=== PATIENT | female | born 1995 | race Hispanic/Latino ===

== ENCOUNTER 2023-01-15 07:40 | Observation (INO) | payer OTHER ==
[~2023-01-15] VITALS: Ht 154.9 cm; Wt 69.9 kg
[2023-01-15] MEDS ORDERED: LACTATED RINGERS 1000ML 1,000 ML IV PRN (08:30)
[2023-01-15 08:47] VITALS: BP 118/57
[2023-01-15 09:24] LABS: APPEARANCE,URINE CLEAR (CLEAR); BILIRUBIN,URINE NEGATIVE (NEGATIVE); COLOR,URINE LIGHT-YELLOW (YELLOW); GLUCOSE, URINE (UA) NEGATIVE (NEGATIVE); KETONES,URINE NEGATIVE (NEGATIVE); LEUKOCYTE ESTERASE ,URINE NEGATIVE Leu/uL (NEGATIVE); NITRATE,URINE NEGATIVE (NEGATIVE); OCCULT BLOOD,URINE NEGATIVE (NEGATIVE); PROTEIN,URINE 10 mg/dL (NEGATIVE); UROBILINOGEN,URINE 0.2 mg/dL (0.2-1.0)
[2023-01-15 09:29] LABS: BACTERIA,URINE FEW /HPF (None Seen); MUCUS,URINE RARE LPF (None Seen); SQUAMOUS EPITHELIAL CELL,UR FEW /HPF (0-2)
[2023-01-15 09:31] LABS: AMPHET/METH SCREEN,URINE NEGATIVE (NEGATIVE); BARBITURATE SCREEN, URINE NEGATIVE (NEGATIVE); BENZODIAZEPINES SCREEN,URINE NEGATIVE (NEGATIVE); CANNABINOID SCREEN,URINE NEGATIVE (NEGATIVE); COCAINE SCREEN,URINE NEGATIVE (NEGATIVE); OPIATE SCREEN,URINE NEGATIVE (NEGATIVE); PHENCYCLIDINE SCREEN,URINE NEGATIVE (NEGATIVE)
== END 2023-01-15 09:35 | disposition home or self-care (01) ==
LOC: EDH 07:40 → LDH 07:41
PROVIDERS: ADMIT Obstetrics & Gynecology; ATTEND Obstetrics & Gynecology
DX: O26.892 Other specified pregnancy related conditions, second trimester (principal); Z20.822 Contact with and (suspected) exposure to COVID-19; R10.9 Unspecified abdominal pain; R19.7 Diarrhea, unspecified; Z3A.22 22 weeks gestation of pregnancy
CPT/HCPCS: 96360; 87635; 80305; 87804 ×2; 81001; G0379; G0378

== ENCOUNTER 2023-05-19 05:48 | Inpatient (IN) | payer OTHER ==
[~2023-05-19] VITALS: Ht 157.5 cm; Wt 79.8 kg
[2023-05-19] MEDS ORDERED: OXYTOCIN-LR 30 UNITS/500ML 500 ML IV SCH (06:00)
[2023-05-19] MEDS ORDERED: OXYTOCIN-LR 20 UNITS/1000 ML 1,000 ML IV SCH (06:00)
[2023-05-19] MEDS ORDERED: LACTATED RINGERS 1000ML 1,000 ML IV PRN (06:00)
[2023-05-19 06:57] LABS: HEMATOCRIT 35.7 % (36-48); MEAN CORPUSCULAR HEMOGLOBIN 27.7 pg (27.0-33.0); MEAN CORPUSCULAR HGB CONC 32.8 g/dL (32.0-36.0); MEAN CORPUSCULAR VOLUME 84.4 fL (79-99); RED BLOOD CELL COUNT(AUTO) 4.23 MIL/uL (4.00-5.50); RED CELL DISTRIBUTION WIDTH 14.1 % (11.0-15.5); WHITE BLOOD COUNT (AUTO) 13.3 K/uL (4.8-10.8)
[2023-05-19 07:09] LABS: APPEARANCE,URINE CLOUDY (CLEAR); BILIRUBIN,URINE NEGATIVE (NEGATIVE); COLOR,URINE YELLOW (YELLOW); GLUCOSE, URINE (UA) NEGATIVE (NEGATIVE); KETONES,URINE NEGATIVE (NEGATIVE); LEUKOCYTE ESTERASE ,URINE 75 Leu/uL (NEGATIVE); NITRATE,URINE NEGATIVE (NEGATIVE); OCCULT BLOOD,URINE MODERATE (NEGATIVE); PROTEIN,URINE 20 mg/dL (NEGATIVE); UROBILINOGEN,URINE 0.2 mg/dL (0.2-1.0)
[2023-05-19 07:36] VITALS: BP 102/55
[2023-05-19 07:42] LABS: BACTERIA,URINE FEW /HPF (None Seen); MUCUS,URINE RARE LPF (None Seen); SQUAMOUS EPITHELIAL CELL,UR FEW /HPF (0-2); TRANSITIONAL EPI CELLS,URINE RARE /HPF (None Seen)
[2023-05-19] MEDS ORDERED: PROMETHAZINE HCL 25 MG/ML 1ML AMPULE IM ONE (09:42)
[2023-05-19] MEDS ORDERED: MEPERIDINE-PF 50 MG/ML SYG ONE (09:42)
[2023-05-19] MEDS ORDERED: FENTANYL CITRATE PF 50 MCG/1 ML 2ML VIAL ONE (09:58)
[2023-05-19] MEDS ORDERED: ROPIVACAINE 0.2% 100ML VIAL 100 ML EP SCH (10:00)
[2023-05-19] MEDS ORDERED: EPHEDRINE SULFATE 50 MG/ML AMPULE IVP PRN (10:00)
[2023-05-19] MEDS ORDERED: MEPERIDINE-PF 50 MG/ML SYG IVP PRN (10:00)
[2023-05-19] MEDS ORDERED: NALOXONE HCL 0.4 MG/1 ML ML IV PRN (10:00)
[2023-05-19] MEDS ORDERED: LACTATED RINGERS 500 ML 500 ML IV PRN (10:00)
[2023-05-19 13:01] LABS: RAPID PLASMA REAGIN NONREACTIVE (NONREACTIVE)
[2023-05-19] MEDS ORDERED: CEFAZOLIN SODIUM 2 GM VIAL ONE (15:30)
[2023-05-19] MEDS ORDERED: CALDOLOR 800MG+NS 250ML 250 ML IV PRN (15:30)
[2023-05-19] MEDS ORDERED: CALDOLOR 800MG+NS 250ML 250 ML IV ONE (15:30)
[2023-05-19] MEDS ORDERED: CEFAZOLIN SODIUM 2 GM VIAL IVPB PRN (15:30)
[2023-05-19] MEDS ORDERED: LIDOCAINE HCL-MPF 2% 10ML AMP IJ ONE (16:02)
[2023-05-19] MEDS ORDERED: CEFAZOLIN SODIUM 2 GM VIAL IVPB ONE (16:16)
[2023-05-19] MEDS ORDERED: ONDANSETRON 4MG INJ ONE ×2 (16:20→17:00)
[2023-05-19] MEDS ORDERED: MORPHINE PF 100MG/10ML AMP IV ONE (16:29)
[2023-05-19] MEDS ORDERED: METOCLOPRAMIDE 10 MG/2 ML VIAL ONE (17:09)
[2023-05-19] MEDS ORDERED: 0.9%NACL 10ML VIAL IVP PRN (17:30)
[2023-05-19] MEDS ORDERED: DEXTROSE 5 %-0.45 % NACL 1,000 ML IV PRN (17:30)
[2023-05-19] MEDS ORDERED: PROMETHAZINE HCL 25 MG/ML 1ML AMPULE IM PRN (17:30)
[2023-05-19] MEDS ORDERED: OXYTOCIN-LR 30 UNITS/500ML 500 ML IV PRN (17:30)
[2023-05-19] MEDS: MEPERIDINE-PF 75 MG/ML SYG IM PRN ×2 (18:37→21:55)
[2023-05-19] MEDS: PROMETHAZINE HCL 25 MG/ML 1ML AMPULE IM PRN ×2 (18:37→21:54)
[2023-05-19 19:46] VITALS: BP 127/65; PULSE 67; RESP 18
[2023-05-19 23:23] VITALS: BP 104/53; PULSE 61; RESP 18
[2023-05-19] MEDS: CEFAZOLIN SODIUM 2 GM VIAL IVPB SCH (23:44)
[2023-05-20] MEDS: MEPERIDINE-PF 75 MG/ML SYG IM PRN (00:43)
[2023-05-20] MEDS ORDERED: BISACODYL 10 MG SUPP.RECT RC PRN (01:30)
[2023-05-20] MEDS ORDERED: HYDROCODONE/ACETAMINOPHEN 5/325 MG TAB PO PRN (01:30)
[2023-05-20] MEDS ORDERED: LANOLIN 30GM OINTMENT TP PRN (01:30)
[2023-05-20] MEDS ORDERED: ACETAMINOPHEN 500 MG TABLET PO PRN (01:30)
[2023-05-20 03:38] VITALS: BP 112/60; PULSE 66; RESP 18
[2023-05-20] MEDS ORDERED: DIPH,PERTUSS(ACELL),TET VAC/PF 0.5 ML VIAL IM ONE ×2 (06:00→13:30)
[2023-05-20 06:23] LABS: HEMATOCRIT 29.5 % (36-48); MEAN CORPUSCULAR HEMOGLOBIN 27.9 pg (27.0-33.0); MEAN CORPUSCULAR HGB CONC 32.2 g/dL (32.0-36.0); MEAN CORPUSCULAR VOLUME 86.8 fL (79-99); RED BLOOD CELL COUNT(AUTO) 3.4 MIL/uL (4.00-5.50); WHITE BLOOD COUNT (AUTO) 14.3 K/uL (4.8-10.8)
[2023-05-20 07:24] VITALS: BP 112/57; PULSE 67; RESP 16
[2023-05-20] MEDS: CEFAZOLIN SODIUM 2 GM VIAL IVPB SCH (08:48)
[2023-05-20] MEDS: SIMETHICONE 80 MG TAB.CHEW PO PRN ×4 (08:49→20:39)
[2023-05-20] MEDS: DOCUSATE SODIUM 100 MG CAP PO SCH ×2 (08:49→20:39)
[2023-05-20] MEDS: IBUPROFEN 600 MG TABLET PO PRN ×2 (08:54→17:52)
[2023-05-20] MEDS: ACETAMINOPHEN WITH CODEINE 1 TAB TAB PO PRN (11:40)
[2023-05-20 12:12] VITALS: BP 109/54; PULSE 64; RESP 20
[2023-05-20 16:47] VITALS: BP 130/60; PULSE 72; RESP 16
[2023-05-20 19:40] VITALS: BP 112/66; PULSE 73; RESP 20
[2023-05-20 23:20] VITALS: BP 108/66; PULSE 70; RESP 20
[2023-05-21] MEDS: ACETAMINOPHEN WITH CODEINE 1 TAB TAB PO PRN (01:48)
[2023-05-21 03:10] VITALS: BP 109/54; PULSE 63; RESP 20
[2023-05-21 07:40] VITALS: BP 90/59; PULSE 77; RESP 18
[2023-05-21] MEDS: DOCUSATE SODIUM 100 MG CAP PO SCH (08:59)
[2023-05-21] MEDS: SIMETHICONE 80 MG TAB.CHEW PO PRN (08:59)
[2023-05-21] MEDS: IBUPROFEN 600 MG TABLET PO PRN (09:00)
[2023-05-21 12:00] VITALS: BP 114/59; PULSE 63; RESP 18
[2023-05-21] MEDS ORDERED: ACET-2079 PO (12:10)
== END 2023-05-21 12:50 | disposition home or self-care (01) | DRG 788 ==
LOC: LDH 05:48 → WSH 18:58
PROVIDERS: ADMIT Obstetrics & Gynecology; ATTEND Obstetrics & Gynecology
PROC: 10D00Z1 Extraction of Products of Conception, Low, Open Approach (ICD-10-PCS; principal; 2023-05-19 16:00)
PROC: 3E0234Z Introduction of Serum, Toxoid and Vaccine into Muscle, Percutaneous Approach (ICD-10-PCS; 2023-05-20)
DX: O62.2 Other uterine inertia (principal); O61.8 Other failed induction of labor; Z37.0 Single live birth; Z3A.39 39 weeks gestation of pregnancy; Z23 Encounter for immunization
CPT/HCPCS: 36415; 59510; 81001; 85027; 86592; 86701; 86850; 86900; 86901; 87088; 87340; 87390; 90715; A4314; A4344; G0378; J1741; J2175; J2274; J2405; J2550; J2590; J2765; J2795; J3010; J3490; J7120; A4248; A4649; J0690